=== PATIENT | female | born 1960 | race Caucasian/White ===

== ENCOUNTER → 2016-09-20 | Outpatient (CLI) | payer BC ==
[~2016-09-20] MED LIST: AMXUNK; ASCA500 PO; CETI10TA84 PO; METR-163 PO; MULT-506 PO; ONDA4TAB46 PO; PRED20TA PO
== END | disposition home or self-care (01) ==
LOC: C.PAPS 11:36
PROVIDERS: ATTEND Obstetrics & Gynecology
DX: Z01.419 Encounter for gynecological examination (general) (routine) without abnormal findings (principal)

== ENCOUNTER → 2016-11-27 | Outpatient (CLI) | payer BC ==
[~2016-11-27] MED LIST changes: +OPTIRAY 320 IV PRN
--- NOTE | 2016-11-27 14:58 | DIAGNOSTIC IMAGING REPORT ---
CT ABD/PELVIS IV AND ORAL CONT CLINICAL HISTORY: Left lower quadrant pain, fever, elevated white count COMPARISON STUDY: 04/28/2010 TECHNIQUE: Following the IV administration of 119 mL of Optiray-320, CT scan of the abdomen and pelvis was performed from the lung bases to the proximal femurs. Images are reviewed in the axial, sagittal, and coronal planes. IV contrast was administered without complication. CT DOSE: 432.67 mGy.cm FINDINGS: Lower chest: The heart is normal in size and configuration, without pericardial effusion. The lung bases and pleural spaces are clear. Liver: The contrast-enhanced liver is normal in size, contour, and attenuation. There is no intrahepatic biliary ductal dilatation. The hepatic veins and portal veins are patent. Gallbladder: Unremarkable. Spleen: Normal in size and attenuation. Pancreas: Unremarkable. Adrenal glands: Unremarkable. Kidneys: There is symmetric renal cortical enhancement. The kidneys are normal in size without hydronephrosis. Bowel: There are no transition zones indicate bowel obstruction. There are no findings to indicate acute appendicitis. There is colonic bowel wall thickening and infiltration the pericolonic fat at the descending sigmoid junction. The findings are indicative of acute diverticulitis area this is similar in location to the diverticulitis described in 2010. There are no fluid collections to indicate a peridiverticular abscess. Peritoneum: There is no intraperitoneal free air or abdominal ascites. Vasculature: The abdominal aorta is normal in course and caliber. Adenopathy: None. Pelvic viscera: The uterus appears surgically absent Skeletal structures: No destructive osseous lesions are seen. IMPRESSION: Acute diverticulitis at the descending sigmoid colonic junction Electronically signed by: Liang Wilson M.D. 11/27/2016 2:56 PM Dictated Date/Time: 11/27/2016 2:52 PM
== END | disposition home or self-care (01) ==
LOC: C.CTS 12:27
PROVIDERS: ATTEND Nurse Practitioner Family
DX: R10.32 Left lower quadrant pain (principal); R50.9 Fever, unspecified; D72.829 Elevated white blood cell count, unspecified; K57.32 Diverticulitis of large intestine without perforation or abscess without bleeding

== ENCOUNTER → 2017-02-01 | Outpatient (CLI) | payer BC ==
[~2017-02-01] MED LIST changes: -OPTIRAY 320 IV PRN
--- NOTE | 2017-02-04 12:36 | MAMMOGRAPHY REPORT ---
BILATERAL DIGITAL SCREENING MAMMOGRAM TOMOSYNTHESIS WITH CAD: 02/01/2017 CLINICAL HISTORY: Routine screening. TECHNIQUE: Breast tomosynthesis in addition to standard 2D mammography was performed. Current study was also evaluated with a Computer Aided Detection (CAD) system. COMPARISON: Comparison is made to exams dated: 01/04/2015 mammogram, 02/01/2016 mammogram, 12/31/2013 ma mmogram, 12/30/2012 mammogram, 12/28/2011 mammogram, and 12/26/2010 mammogram - [facility] nter. BREAST COMPOSITION: There are scattered areas of fibroglandular density in both breasts. FINDINGS: No suspicious masses, calcifications, or areas of architectural distortion are noted in ei ther breast. There has been no significant interval change compared to prior exams. IMPRESSION: ACR BI-RADS CATEGORY 1: NEGATIVE There is no mammographic evidence of malignancy. A 1 year screening mammogram is recommended. The pa tient will receive written notification of the results. Approximately 10% of breast cancers are not detected with mammography. A negative mammographic report should not delay biopsy if a clinically suggestive mass is present. Annika Doran M.D. ah/:02/01/2017 16:37:06 Last Trimmer: David MITCHELL(Pedrito)(M), [facility] letter sent: Normal 1/2 BI-RADS Code: ACR BI-RADS Category 1: Negative
== END | disposition home or self-care (01) ==
LOC: C.MAMM 16:20
PROVIDERS: ATTEND Obstetrics & Gynecology
DX: Z12.31 Encounter for screening mammogram for malignant neoplasm of breast (principal)

== ENCOUNTER → 2017-09-25 | Outpatient (CLI) | payer OTHER | END | disposition home or self-care (01) | LOC: C.PAPS 10:18 | PROVIDERS: ATTEND Obstetrics & Gynecology | DX: Z01.419 Encounter for gynecological examination (general) (routine) without abnormal findings (principal) ==